=== PATIENT | female | born 1980 ===

== ENCOUNTER 2025-06-22 17:20 | Emergency (ER) | payer SELFPAY | END 2025-06-22 18:50 | disposition home or self-care (01) | LOC: ERS 17:20 | DX: S16.1XXA Strain of muscle, fascia and tendon at neck level, initial encounter (principal); R51.9 Headache, unspecified; V49.9XXA Car occupant (driver) (passenger) injured in unspecified traffic accident, initial encounter; Y92.410 Unspecified street and highway as the place of occurrence of the external cause | CPT/HCPCS: 99283 ==